=== PATIENT | male | born 1960 | race African-American/Black ===

== ENCOUNTER 2018-11-01 12:02 | Emergency (ER) | payer OTHER ==
[~2018-11-01] VITALS: Ht 165.1 cm; Wt 113.6 kg
[~2018-11-01 12:02] MED LIST: ALDACTONE 25MG25 M1; ALDACTONE 25MG25 M1 PO; ASPIRIN 81M81 MG/TA2 PO; ASPIRIN E.C. 8181 MG PO; CEPHALEXIN500 M1 PO; DOXYCYCLINE 10100 MG PO; FLEXERIL5 MG PO; GLUCOTROL 5M5 MG/TAB PO; LASIX 20MG TABL20 MG PO; LASIX 40MG TABL40 MG PO; MEDROL 4MG DOSPA4 MG PO; NITROSTAT0.4 MG/TAB SL; NORCO 325 MG-51 TAB PO; PRILOSEC 20MG20 MG PO; PRINIVIL40 MG PO; TOPROL XL 50MG50 MG PO; ULTRAM 50MG TAB50 MG PO; ZESTRIL40 MG PO; ZYLOPRIM 100MG100 MG; ZYLOPRIM 100MG100 MG PO
[2018-11-01 12:06] VITALS: TEMP 98.3
[2018-11-01] MEDS ORDERED: ILOTYCIN5 MG/GM OP (12:21)
[2018-11-01 12:32] VITALS: BP 197/88; PULSE 65
== END 2018-11-01 12:33 | disposition home or self-care (01) ==
LOC: COL.ER 12:02
DX: B99.9 Unspecified infectious disease (principal); H10.89 Other conjunctivitis; F17.210 Nicotine dependence, cigarettes, uncomplicated; I10 Essential (primary) hypertension

== ENCOUNTER → 2018-11-13 | Emergency (ER) | payer OTHER ==
[~2018-11-13] VITALS: Ht 165.1 cm; Wt 113.6 kg
[~2018-11-13] MED LIST changes: +AMOXICILLIN 8751 TAB PO; +CLEOCIN HC150 MG/CAP PO; +COZAAR 50MG50 MG/TAB PO; +ILOTYCIN5 MG/GM OP; +PREDNISONE20 MG PO
[2018-11-13 14:59] VITALS: TEMP 98.6
[2018-11-13 16:29] LABS: BASO # 0.1 (0.0-0.2); BASO % 0.4 % (0.0-2.0); EOS # 0.1 (0.0-0.7); EOS % 0.6 % (0-4.0); GRAN # 9.5 (1.4-6.5); GRAN % 66.5 % (42.2-75.2); HEMATOCRIT 42.7 % (42.0-52.0); HEMOGLOBIN 14.6 g/dl (13.5-18.0); LYMPH # 3.6 (1.2-3.4); LYMPH % 25.2 % (20.0-51.0); MEAN CELL VOLUME 92 fl (80.0-100.0); MEAN CORPUSCULAR HEMOGLOBIN 32 pg (27.0-31.0); MEAN CORPUSCULAR HGB CONC 34 g/dl (33.0-37.0); MEAN PLATELET VOLUME 10.4 fl (7.4-10.4); PLATELET COUNT 196 K/mm3 (130-400); RED BLOOD COUNT 4.62 M/mm3 (4.20-5.60); REDCELL DISTRIBUTION WIDTH-CV 14.3 % (11.5-14.5)
[2018-11-13 16:42] LABS: ALBUMIN 4.1 gm/dL (3.5-5.0); BILIRUBIN,TOTAL 0.5 mg/dL (0.0-1.0); C-REACTIVE PROTEIN 1.5 mg/dL (0.0-0.9); CALCIUM 9.2 mg/dL (8.4-10.2); CREATININE, serum 0.63 mg/dL (0.66-1.25); POTASSIUM 3.9 mmol/L (3.4-5.0); TOTAL PROTEIN 7.5 gm/dL (6.4-8.2)
[2018-11-13 18:09] VITALS: BP 168/86
[2018-11-13 18:35] VITALS: PULSE 72
== END ==
LOC: COL.ER 14:39
PROVIDERS: Physician Assistant
DX: R68.84 Jaw pain (principal); L08.9 Local infection of the skin and subcutaneous tissue, unspecified; R22.0 Localized swelling, mass and lump, head; I10 Essential (primary) hypertension; F17.210 Nicotine dependence, cigarettes, uncomplicated
CPT/HCPCS: J1200; J2920; J7512; Q9967

== ENCOUNTER 2018-12-03 12:32 | Emergency (ER) | payer OTHER ==
[~2018-12-03] VITALS: Ht 165.1 cm; Wt 113.6 kg
[2018-12-03 12:44] VITALS: TEMP 98.2
[2018-12-03 13:09] LABS: COLLECTION METHOD CLEAN CATCH
[2018-12-03 13:18] LABS: MUCOUS Present /lpf; PH 5 (5-8); SQUAMOUS EPITHELIAL None Seen /hpf; URINE APPEARANCE Clear; URINE BACTERIA Occasional /hpf; URINE BILIRUBIN Negative (NEGATIVE); URINE BLOOD 2+ (NEGATIVE); URINE COLOR Amber; URINE GLUCOSE Negative (NEGATIVE); URINE KETONE Negative (NEGATIVE); URINE LEUKOCYTE ESTERASE 1+ (NEGATIVE); URINE NITRATE Positive (NEGATIVE); URINE PROTEIN(semi-quant) 2+ (NEGATIVE); URINE UROBILINOGEN >=4.0 mg/dL (NEGATIVE)
[2018-12-03] MEDS ORDERED: AMOXICILLIN 8751 TAB PO (13:40)
[2018-12-03 13:51] VITALS: BP 147/76; PULSE 84
[2018-12-06] MEDS ORDERED: SEPTRA DS 8001 TAB PO (06:51)
== END 2018-12-03 13:52 | disposition home or self-care (01) ==
LOC: COL.ER 12:32
PROVIDERS: Physician Assistant
DX: N30.00 Acute cystitis without hematuria (principal)
CPT/HCPCS: J0696

== ENCOUNTER 2019-10-25 19:27 | Emergency (ER) | payer OTHER ==
[~2019-10-25] VITALS: Ht 165.1 cm; Wt 90.9 kg
[~2019-10-25 19:27] MED LIST changes: +SEPTRA DS 8001 TAB PO
[2019-10-25 19:32] VITALS: TEMP 98.1
[2019-10-25 19:59] LABS: BASO # 0.1 (0.0-0.2); BASO % 0.4 % (0.0-2.0); EOS % 0.1 % (0-4.0); GRAN # 8.5 (1.4-6.5); GRAN % 62.1 % (42.2-75.2); HEMATOCRIT 40.6 % (42.0-52.0); HEMOGLOBIN 14.1 g/dl (13.5-18.0); LYMPH # 4.2 (1.2-3.4); LYMPH % 30.6 % (20.0-51.0); MEAN CELL VOLUME 92 fl (80.0-100.0); MEAN CORPUSCULAR HEMOGLOBIN 32 pg (27.0-31.0); MEAN CORPUSCULAR HGB CONC 35 g/dl (33.0-37.0); MEAN PLATELET VOLUME 10.8 fl (7.4-10.4); MONO # 0.9 (0.1-0.6); MONO % 6.5 % (1.7-9.3); PLATELET COUNT 205 K/mm3 (130-400); RED BLOOD COUNT 4.42 M/mm3 (4.20-5.60); REDCELL DISTRIBUTION WIDTH-CV 13.7 % (11.5-14.5)
[2019-10-25 20:10] LABS: ALANINE AMINOTRANSFERASE 19 U/L (21-72); ALBUMIN 3.9 gm/dL (3.5-5.0); ALKALINE PHOSPHATASE 89 U/L (50-136); ANION GAP 7 mmol/L (7-16); AST,SGOT 20 U/L (15-37); BILIRUBIN,TOTAL 0.6 mg/dL (0.0-1.0); BLOOD UREA NITROGEN 8 mg/dL (9-20); CALCIUM 9.4 mg/dL (8.4-10.2); CARBON DIOXIDE 28 mmol/L (22-30); CHLORIDE 105 mmol/L (98-107); CREATINE KINASE 146 U/L (55-170); CREATININE, serum 0.63 (0.66-1.25); GLUCOSE 252 mg/dL (74-106); INR 1.1 (0.8-3.0); LIPASE 52 U/L (23-300); POTASSIUM 3.5 mmol/L (3.4-5.0); PROTHROMBIN TIME 12.6 SECONDS (9.7-12.8); SODIUM 140 mmol/L (137-145); TOTAL PROTEIN 7.1 gm/dL (6.4-8.2)
[2019-10-25 20:25] LABS: TROPONIN-I < 0.012 ng/mL (0.000-0.035)
[2019-10-25 20:35] LABS: D-DIMER < 200.00 ng/mLDDu (200-230)
[2019-10-25 21:11] VITALS: BP 142/79; PULSE 70
== END 2019-10-25 21:16 | disposition home or self-care (01) ==
LOC: COL.ER 19:27
PROVIDERS: Emergency Medicine
DX: R07.89 Other chest pain (principal); I10 Essential (primary) hypertension; M10.9 Gout, unspecified; E11.9 Type 2 diabetes mellitus without complications; F17.210 Nicotine dependence, cigarettes, uncomplicated
CPT/HCPCS: J2270

== ENCOUNTER 2022-11-17 03:05 | Inpatient (IN) | payer OTHER ==
[~2022-11-17] VITALS: Ht 165.1 cm; Wt 112.3 kg
[2022-11-17] VITALS (854 sets, daily range): BP systolic 115–154; BP diastolic 90–96; PULSE 74–114; TEMP 96.7–99; O2SAT 85–100
[~2022-11-17 03:05] MED LIST changes: +IPRATROPIUM BROM3 M1 IH; +PREDNISONE50 MG PO
[2022-11-17 03:23] LABS: ARTERIAL BLD GAS O2 SATURATION 98.7 % (92-100); ARTERIAL BLD GAS TCO2 CT 18.4; ARTERIAL BLOOD GAS BASE EXCESS -16.2 (-2-2); ARTERIAL BLOOD GAS HCO3 16.3 meq/L (22-26)
[2022-11-17 03:24] LABS: ARTERIAL BLOOD GAS PCO2 68.9 mmHg (35-45); ARTERIAL BLOOD GAS PO2 211.2 mmHg (80-100); ARTERIAL BLOOD GAS pH 6.99 (7.35-7.45)
[2022-11-17 03:25] LABS: HEMATOCRIT 50.5 % (42.0-52.0); HEMOGLOBIN 15.6 g/dl (13.5-18.0); MEAN CELL VOLUME 102 fl (80.0-100.0); MEAN CORPUSCULAR HEMOGLOBIN 32 pg (27-31); MEAN CORPUSCULAR HGB CONC 31 g/dl (33.0-37.0); MEAN PLATELET VOLUME 11.3 fl (7.4-10.4); PLATELET COUNT 273 K/mm3 (130-400); RED BLOOD COUNT 4.94 M/mm3 (4.20-5.60); REDCELL DISTRIBUTION WIDTH-CV 15.1 % (11.5-14.5)
[2022-11-17 03:34] LABS: INR 1.1 (0.8-3.0); PROTHROMBIN TIME 12.5 SECONDS (9.7-12.8)
[2022-11-17 03:36] LABS: PARTIAL THROMBOPLASTIN TIME 29.7 SECONDS (26.0-37.0)
[2022-11-17 03:52] LABS: ANISOCYTOSIS 1+; BAND 3 % (0-10); COLLECTION METHOD CLEAN CATCH; EOSINOPHIL 1 % (0-4); LYMPHOCYTE 44 % (20.0-51.0); NEUTROPHILS 48 % (42.0-75.2); PLATELET ESTIMATE NORMAL (NORMAL)
[2022-11-17 03:53] LABS: HYPOCHROMIA 3+
[2022-11-17 03:59] LABS: ALBUMIN 3.7 gm/dL (3.4-4.8); BILIRUBIN,TOTAL 0.4 mg/dL (0.2-1.2); CALCIUM 9.5 mg/dL (8.4-10.2); CREATININE, serum 1.15 mg/dL (0.72-1.25); MUCOUS Present (NOT PRESENT); POTASSIUM 3.7 mmol/L (3.5-4.5); SQUAMOUS EPITHELIAL 0-2 /hpf (0-10); TOTAL PROTEIN 7.8 gm/dL (6.2-8.1)
[2022-11-17 04:00] LABS: URINE BACTERIA Occasional /hpf (NONE SEEN)
[2022-11-17 04:01] LABS: PH 6.5 (5.0-8.5); URINE APPEARANCE Clear (CLEAR/HAZY); URINE BLOOD 1+ (NEGATIVE); URINE COLOR Yellow (YELLOW); URINE GLUCOSE 1+ (NEGATIVE); URINE KETONE Negative (NEGATIVE); URINE NITRATE Negative (NEGATIVE); URINE PROTEIN(semi-quant) 3+ (NEGATIVE); URINE UROBILINOGEN 0.2 E.U/dL (0.2-1.0)
[2022-11-17 04:32] LABS: TROPONIN-I 0.051 ng/mL (0.00-0.033)
[2022-11-17 04:40] LABS: ARTERIAL BLD GAS O2 SATURATION 97.1 % (92-100); ARTERIAL BLD GAS TCO2 CT 24.1; ARTERIAL BLOOD GAS BASE EXCESS -5.9 (-2-2); ARTERIAL BLOOD GAS HCO3 22.4 meq/L (22-26); ARTERIAL BLOOD GAS PCO2 55.2 mmHg (35-45); ARTERIAL BLOOD GAS PO2 103.8 mmHg (80-100); ARTERIAL BLOOD GAS pH 7.23 (7.35-7.45)
--- NOTE | 2022-11-17 06:18 | NUR ---
PT RECEIVED FROM ER VIA STRETCHER, ON BIPAP. PT MOVED TO ICU BED AND CONNECTED TO MONITORING. BIPAP ON AT 50% FIO2, RATE OF 25. PT TOLERATING WELL HOWEVER ASKING FOR WATER. PT GIVEN ICE CHIPS DURING SHORT BREAK OFF BIPAP, TOLERATED 5 MINUTES. ADMISSION QUESTIONS ANSWERED, HOWEVER AFTER SHORT TIME PT STATES DIFFICULT TO BREATHE AND REPLACED MASK. HOME MEDS NOT YET REVIEWED WITH PT. VANCOMYCIN INFUSING TO L F/A PIV. NITRO DRIP NOT INFUSING AT THIS TIME, PT'S SBP 145 ON ADMISSION. R A/C PIV SALINE LOCKED. DORSEY IN PLACE WITH CLEAR YELLOW URINE. PT DENIES PAIN. FAMILY UPDATED PER MAGDI KERR IN ER. WILL CONTINUE TO MONITOR.
[2022-11-17 07:27] LABS: CALCIUM 8.3 mg/dL (8.4-10.2); CREATININE, serum 1.11 mg/dL (0.72-1.25); POTASSIUM 4.8 mmol/L (3.5-4.5)
[2022-11-17 07:52] LABS: C-REACTIVE PROTEIN 0.84 mg/dL (0.00-0.50); CHOLESTEROL RISK RATIO 3.9; MAGNESIUM 1.7 mg/dL (1.6-2.6); PHOSPHOROUS 3.5 mg/dL (2.3-4.7)
--- NOTE | 2022-11-17 07:55 | NUR ---
Vancomycin Initial Dosing Pharmacy Note Ordering provider: Segundo Cruz MD Indication/duration: PNA, 7 days LABS: SCr 1.11, CrCl~73, GFR 75 Recommendation: Will continue Vancomcyin 1.25 gm IV q12h. Pharmacy will closely monitor and check a Vancomycin trough on 11/19/22. Loading dose: 2 grams Maintenance dose: 1.25 grams every 12 hours Trough goal: 15-20 ug/mL
--- NOTE | 2022-11-17 09:52 | NUR ---
BEDSIDE SHIFT REPORT RECEIVED FROM MAGDI BROWNING. PT CURRENTLY RESTINING IN BED, NO C/O PAIN OR DISCOMFORT AT THIS TIME. LINES RUNNING ACCORDING TO REPORT. DORSEY DRAINING APPROPRIATELY. VSS ORIENTED TO SELF ONLY.
[2022-11-17 10:06] LABS: ARTERIAL BLD GAS O2 SATURATION 97.5 % (92-100); ARTERIAL BLD GAS TCO2 CT 27.1; ARTERIAL BLOOD GAS BASE EXCESS -0.5 (-2-2); ARTERIAL BLOOD GAS HCO3 25.6 meq/L (22-26); ARTERIAL BLOOD GAS PCO2 47.7 mmHg (35-45); ARTERIAL BLOOD GAS PO2 98.4 mmHg (80-100); ARTERIAL BLOOD GAS pH 7.35 (7.35-7.45)
--- NOTE | 2022-11-17 10:25 | NUR ---
YAQUELIN met with patient to complete intake. Patient reports that he lives at home with his Bella ([phone]) in [place]. Patient reports to being independent with his ALD's and does not utilize any DME to assist with mobility. Patient reports to no home oxygen needs but does have a CPAP machine at night. [facility] and [facility]. He utilizes [facility] for short term medications. Patient denies having a DPOA-HC established and does not wish to create one at this time.
[2022-11-17] MEDS ORDERED: COREG 25MG25 MG/TAB PO (13:58)
[2022-11-17] MEDS ORDERED: COZAAR 50MG50 MG/TAB PO (13:59)
[2022-11-17] MEDS ORDERED: ZYLOPRIM 300MG300 MG PO (13:59)
--- NOTE | 2022-11-17 19:57 | NUR ---
RECEIVED REPORT FROM DAY SHIFT NURSE. PT IS RESTING IN T BED AND PT'S VITALS ARE STABLE AT THIS TIME.
[2022-11-17 21:11] LABS: ARTERIAL BLD GAS O2 SATURATION 94.5 % (92-100); ARTERIAL BLD GAS TCO2 CT 26.1; ARTERIAL BLOOD GAS BASE EXCESS 0.3 (-2-2); ARTERIAL BLOOD GAS HCO3 24.8 meq/L (22-26); ARTERIAL BLOOD GAS PCO2 39.9 mmHg (35-45); ARTERIAL BLOOD GAS PO2 69.4 mmHg (80-100); ARTERIAL BLOOD GAS pH 7.41 (7.35-7.45)
[2022-11-18] VITALS (1291 sets, daily range): BP systolic 117–151; BP diastolic 76–93; PULSE 77–90; TEMP 96.5–97.9; O2SAT 88–100
[2022-11-18 05:48] LABS: ARTERIAL BLD GAS O2 SATURATION 97.6 % (92-100); ARTERIAL BLOOD GAS BASE EXCESS 1.2 (-2-2); ARTERIAL BLOOD GAS HCO3 25.8 meq/L (22-26); ARTERIAL BLOOD GAS PCO2 40.8 mmHg (35-45); ARTERIAL BLOOD GAS PO2 98.9 mmHg (80-100); ARTERIAL BLOOD GAS pH 7.42 (7.35-7.45)
--- NOTE | 2022-11-18 06:26 | NUR ---
PT HAS HAD AN UNEVENTFUL NIGHT. PT HAS BEEN UP MOST OF THE NIGHT AND ON 2L NC. PT CHANGED TO BIPAP AROUND 0500. PT'S VITALS HAVE BEEN STABLE THROUGHOUT THE NIGHT. PT DID NOT WANT TO BE REPOSITIONED. PT COULD MOVE HIMSELF A LITTLE BIT BUT NOT A LOT TO WHERE HE ROLLS TO ONE SIDE OR THE OTHER. WILL GIVE REPORT TO DAY SHIFT NURSE.
[2022-11-18 06:33] LABS: HEMATOCRIT 42.5 % (42.0-52.0); MEAN CORPUSCULAR HEMOGLOBIN 31 pg (27-31); MEAN CORPUSCULAR HGB CONC 33 g/dl (33.0-37.0); MEAN PLATELET VOLUME 11.7 fl (7.4-10.4); PLATELET COUNT 240 K/mm3 (130-400); RED BLOOD COUNT 4.49 M/mm3 (4.20-5.60); REDCELL DISTRIBUTION WIDTH-CV 14.4 % (11.5-14.5)
[2022-11-18 06:37] LABS: MEAN CELL VOLUME 95 fl (80.0-100.0)
[2022-11-18 06:38] LABS: CALCIUM 8.9 mg/dL (8.4-10.2); CREATININE, serum 1.02 mg/dL (0.72-1.25); POTASSIUM 3.6 mmol/L (3.5-4.5)
[2022-11-18 06:53] LABS: TROPONIN-I 0.235 ng/mL (0.00-0.033)
[2022-11-18 07:50] LABS: BAND 6 % (0-10); LYMPHOCYTE 20 % (20.0-51.0); NEUTROPHILS 71 % (42.0-75.2); PLATELET ESTIMATE NORMAL (NORMAL)
--- NOTE | 2022-11-18 18:59 | NUR ---
REPORT GIVEN TO MAGDI VERA
--- NOTE | 2022-11-18 19:48 | NUR ---
RECEIVED REPORT FROM DAY SHIFT NURSE. PT IS SITTING UP ON THE SIDE OF THE BED. PT'S VITALS ARE STABLE AT THIS TIME.
[2022-11-19] VITALS (1362 sets, daily range): BP systolic 139–156; BP diastolic 82–98; PULSE 77–95; TEMP 97.9–98.7; O2SAT 76–100
[2022-11-19 06:03] LABS: ARTERIAL BLD GAS TCO2 CT 28.5; ARTERIAL BLOOD GAS BASE EXCESS 2.9 (-2-2); ARTERIAL BLOOD GAS HCO3 27.3 meq/L (22-26); ARTERIAL BLOOD GAS PCO2 40.9 mmHg (35-45); ARTERIAL BLOOD GAS PO2 66.5 mmHg (80-100); ARTERIAL BLOOD GAS pH 7.44 (7.35-7.45)
[2022-11-19 06:06] LABS: MEAN CELL VOLUME 91 fl (80.0-100.0); MEAN CORPUSCULAR HEMOGLOBIN 31 pg (27-31); MEAN CORPUSCULAR HGB CONC 34 g/dl (33.0-37.0); MEAN PLATELET VOLUME 11.2 fl (7.4-10.4); PLATELET COUNT 230 K/mm3 (130-400); RED BLOOD COUNT 4.84 M/mm3 (4.20-5.60); REDCELL DISTRIBUTION WIDTH-CV 14.5 % (11.5-14.5)
[2022-11-19 06:28] LABS: CALCIUM 8.9 mg/dL (8.4-10.2); CREATININE, serum 1.07 mg/dL (0.72-1.25); POTASSIUM 3.1 mmol/L (3.5-4.5)
[2022-11-19 06:40] LABS: BAND 2 % (0-10); LYMPHOCYTE 39 % (20.0-51.0); NEUTROPHILS 52 % (42.0-75.2)
[2022-11-19 06:41] LABS: ANISOCYTOSIS 1+; PLATELET ESTIMATE NORMAL (NORMAL)
--- NOTE | 2022-11-19 06:42 | NUR ---
PT HAS HAD AN UNEVENTFUL NIGHT. PT'S VITALS HAVE BEEN STABLE THROUGHOUT THE NIGHT. PT HAS BEEN ROOM AIR AND IS ON HOME CPAP AT THIS TIME. WILL GIVE REPORT TO DAY SHIFT NURSE.
--- NOTE | 2022-11-19 12:45 | NUR ---
PT IS ALERT AND ORIENTED IN ROOM. PT HAS A STEADY GAIT AND IS INDEPENDENT IN THE ROOM. PT DENIES ANY NEEDS AT THIS TIME. CALL LIGHT IN REACH.
[2022-11-19] MEDS ORDERED: ALDACTONE 25MG25 M1 PO (13:25)
[2022-11-19] MEDS ORDERED: ENTRESTO 24 MG1 EACH PO (13:25)
[2022-11-19] MEDS ORDERED: ASPIRIN 81M81 MG/TA2 PO (13:25)
[2022-11-19] MEDS ORDERED: AMOXICILLIN 8751 TAB PO (13:26)
[2022-11-19] MEDS ORDERED: LASIX 40MG TABL40 MG PO (13:27)
[2022-11-19] MEDS ORDERED: JARDIANCE10 PO (13:29)
--- NOTE | 2022-11-19 18:18 | NUR ---
PT HAS SAT IN RECLINER MOST OF THE DAY. PT WALKS WITH RT AND RN SBA. PT IS STEADY ON FEET AND SPO2 REMAINS WNL. PT DENIES COMPLAINTS AT THIS TIME AND IS VISTING WITH FAMILY.
--- NOTE | 2022-11-19 22:14 | NUR ---
RECEIVED REPORT FROM DAY SHIFT NURSE. PT IS SITTING UP IN A RECLINER. PT'S VITALS ARE STABLE AT THIS TIME.
--- NOTE | 2022-11-19 22:51 | NUR ---
AT 2100 NURSE NOTICE THAT PT'S IV SITE IN THE RIGHT AC WAS LEAKING AND HAD SOME REDNESS ABOVE THE SITE AND SOME PAIN AROUND IT ALONG WITH SOME SWELLING. TRIED TO CLEAN THE SITE AND FLUSH TO SEE IF IT WAS FLUSHING CORRECTLY. WHEN FLUSHING THE SITE WAS LEAKING CLEAR LIQUID. SO NURSE D/C THE IV AND THE CATHETER TIP WAS INTACT. NURSE STARTED A NEW IV SITE WITH A 20 DIXIE IN THE LEFT AC WITH THE FIRST ATTEMPT. NEW SITE HAS BLOOD RETURN AND FLUSHES.
[2022-11-20] VITALS (678 sets, daily range): BP systolic 129–149; BP diastolic 82–89; PULSE 77–78; TEMP 97.5–97.9; O2SAT 89–100
--- NOTE | 2022-11-20 06:39 | NUR ---
PT HAS HAD AN UNEVENTFUL NIGHT. PT'S VITALS HAVE BEEN STABLE THROUGHOUT THE SHIFT. WILL GIVE REPORT TO DAY SHIFT NURSE.
[2022-11-20 07:17] LABS: BASO # 0.1 K/mm3 (0.0-0.2); BASO % 0.4 % (0.0-2.0); EOS % 0.1 % (0.0-4.0); GRAN # 8.3 K/mm3 (1.4-6.5); GRAN % 56.2 % (42.2-75.2); HEMATOCRIT 43.4 % (42.0-52.0); HEMOGLOBIN 14.5 g/dl (13.5-18.0); LYMPH # 4.9 K/mm3 (1.2-3.4); LYMPH % 33.5 % (20.0-51.0); MEAN CELL VOLUME 93 fl (80.0-100.0); MEAN CORPUSCULAR HEMOGLOBIN 31 pg (27-31); MEAN CORPUSCULAR HGB CONC 33 g/dl (33.0-37.0); MEAN PLATELET VOLUME 11.3 fl (7.4-10.4); MONO # 1.4 K/mm3 (0.1-0.6); MONO % 9.3 % (1.7-9.3); PLATELET COUNT 250 K/mm3 (130-400); RED BLOOD COUNT 4.65 M/mm3 (4.20-5.60); REDCELL DISTRIBUTION WIDTH-CV 14.4 % (11.5-14.5)
[2022-11-20 07:20] LABS: CALCIUM 8.7 mg/dL (8.4-10.2); CREATININE, serum 1.07 mg/dL (0.72-1.25); POTASSIUM 3.3 mmol/L (3.5-4.5)
--- NOTE | 2022-11-20 12:14 | NUR ---
1145- pt INT discontinued. Discharge paperwork and education discussed. PT verbalized and signed for understanding. PT is waiting on ride in room
== END 2022-11-20 13:42 | disposition home or self-care (01) | DRG 280 ==
LOC: COL.ER 03:05 → ICU 04:48
PROVIDERS: Emergency Medicine; Internal Medicine Pulmonary Disease; Nurse Practitioner Family; ADMIT Internal Medicine
PROC: 5A09557 Assistance with Respiratory Ventilation, Greater than 96 Consecutive Hours, Continuous Positive Airway Pressure (ICD-10-PCS; principal; 2022-11-17)
DX: I11.0 Hypertensive heart disease with heart failure (principal); I50.23 Acute on chronic systolic (congestive) heart failure; I21.A1 Myocardial infarction type 2; J96.01 Acute respiratory failure with hypoxia; J96.02 Acute respiratory failure with hypercapnia; J18.9 Pneumonia, unspecified organism; I16.1 Hypertensive emergency; E87.20 Acidosis, unspecified; E87.1 Hypo-osmolality and hyponatremia; I48.92 Unspecified atrial flutter; I42.8 Other cardiomyopathies; M10.9 Gout, unspecified; G47.33 Obstructive sleep apnea (adult) (pediatric); J43.9 Emphysema, unspecified; D72.829 Elevated white blood cell count, unspecified; E87.8 Other disorders of electrolyte and fluid balance, not elsewhere classified; F17.210 Nicotine dependence, cigarettes, uncomplicated; E11.65 Type 2 diabetes mellitus with hyperglycemia; Z20.822 Contact with and (suspected) exposure to COVID-19; Z88.8 Allergy status to other drugs, medicaments and biological substances; Z86.16 Personal history of COVID-19; Z23 Encounter for immunization
CPT/HCPCS: J1650; J1815; J1940; J2270; J2405; J2543; J2930; J3370; J7040

== ENCOUNTER 2023-07-24 22:00 | Inpatient (IN) | payer OTHER ==
[~2023-07-24] VITALS: Ht 165.1 cm; Wt 113.1 kg
[~2023-07-24 22:00] MED LIST changes: +COREG 25MG25 MG/TAB PO; +ENTRESTO 24 MG1 EACH PO; +JARDIANCE10 PO; +ZYLOPRIM 300MG300 MG PO
[2023-07-24 22:29] LABS: BASO # 0.1 K/mm3 (0.0-0.2); BASO % 0.4 % (0.0-2.0); GRAN % 87.4 % (42.2-75.2); HEMATOCRIT 47.3 % (42.0-52.0); HEMOGLOBIN 16.1 g/dl (13.5-18.0); LYMPH # 1.2 K/mm3 (1.2-3.4); LYMPH % 5.4 % (20.0-51.0); MEAN CELL VOLUME 92 fl (80.0-100.0); MEAN CORPUSCULAR HEMOGLOBIN 31 pg (27-31); MEAN CORPUSCULAR HGB CONC 34 g/dl (33.0-37.0); MEAN PLATELET VOLUME 12.3 fl (7.4-10.4); MONO # 1.4 K/mm3 (0.1-0.6); PLATELET COUNT 200 K/mm3 (130-400); RED BLOOD COUNT 5.13 M/mm3 (4.20-5.60); REDCELL DISTRIBUTION WIDTH-CV 14.9 % (11.5-14.5)
[2023-07-24 22:41] LABS: ARTERIAL BLD GAS O2 SATURATION 88.9 % (92-100); ARTERIAL BLD GAS TCO2 CT 24.4; ARTERIAL BLOOD GAS BASE EXCESS 1.3 (-2-2); ARTERIAL BLOOD GAS HCO3 23.4 meq/L (22-26); ARTERIAL BLOOD GAS PCO2 30.9 mmHg (35-45); ARTERIAL BLOOD GAS PO2 50.3 mmHg (80-100)
[2023-07-24 22:51] LABS: ALBUMIN 4.1 gm/dL (3.4-4.8); BILIRUBIN,TOTAL 1.2 mg/dL (0.2-1.2); CALCIUM 9.7 mg/dL (8.4-10.2); CREATININE, serum 1.17 mg/dL (0.72-1.25); POTASSIUM 4.2 mmol/L (3.5-4.5); TOTAL PROTEIN 8.4 gm/dL (6.2-8.1)
[2023-07-24 22:58] LABS: TROPONIN-I 0.08 ng/mL (0.00-0.033)
[2023-07-24 23:24] LABS: ARTERIAL BLD GAS O2 SATURATION 96.8 % (92-100); ARTERIAL BLD GAS TCO2 CT 23.2; ARTERIAL BLOOD GAS HCO3 22.2 meq/L (22-26); ARTERIAL BLOOD GAS PCO2 33.1 mmHg (35-45); ARTERIAL BLOOD GAS PO2 89.3 mmHg (80-100); ARTERIAL BLOOD GAS pH 7.45 (7.35-7.45)
[2023-07-24 23:40] LABS: COLLECTION METHOD CLEAN CATCH
[2023-07-24 23:48] LABS: MUCOUS Present (NOT PRESENT); SQUAMOUS EPITHELIAL 0-2 /hpf (0-10); URINE BACTERIA None Seen /hpf (NONE SEEN); URINE RBC 0-2 /hpf (0-2); URINE WBC 0-2 /hpf (0-2)
[2023-07-24 23:52] LABS: PH 5.5 (5.0-8.5); URINE APPEARANCE Clear (CLEAR/HAZY); URINE COLOR Yellow (YELLOW); URINE GLUCOSE 2+ (NEGATIVE); URINE KETONE 2+ (NEGATIVE); URINE PROTEIN(semi-quant) 3+ (NEGATIVE)
[2023-07-24 23:54] LABS: URINE BLOOD 2+ (NEGATIVE); URINE NITRATE Negative (NEGATIVE); URINE UROBILINOGEN 0.2 E.U/dL (0.2-1.0)
[2023-07-25] VITALS (603 sets, daily range): BP systolic 111–139; BP diastolic 64–81; PULSE 70–82; TEMP 97.4–99.1; O2SAT 31–100
--- NOTE | 2023-07-25 00:53 | NUR ---
Received report from ED nurseTaisha.
[2023-07-25] MEDS ORDERED: ENTRESTO 49 MG1 EACH PO (01:00)
[2023-07-25] MEDS ORDERED: JARDIANCE25 PO (01:05)
--- NOTE | 2023-07-25 01:20 | NUR ---
Patient arrives to ICU room 5 via ED stretcher. Patient states he does not like to lay flat or in bed and prefers a recliner. Recliner brought to room upon patient's request. Inital vitals within normal limits; he is 98% on room air with unlabored respirations. Racquel notified of patient's arrival and his request to have something to eat. Diet order received.
[2023-07-25] MEDS ORDERED: ULTRAM 50MG TAB50 MG PO (01:44)
--- NOTE | 2023-07-25 02:40 | NUR ---
Patient's belongings include street clothes, his cell phone, a pair of glasses, and a silver-colored bracelet. He denies having hearing aids, dentures, or other removable jewelry on his person. He states his left his wallet at home.
--- NOTE | 2023-07-25 05:54 | NUR ---
63 yo male admitted for further care and management of acute respiratory failure with additional concerns for sepsis likely of pulmonary source. ht 165.1 cm wt 90.9 kg SCr 1.17 with estimated CrCl ~60 ml/min half life 15.9 hours Plan: Patient received an initial loading dose of vancomycin 1500 mg x1 in the ED; will give a supplemental loading dose of vancomycin 500 mg for a total loading dose of 2000 mg (22 mg/kg); followed by a maintenance regimen of vancomycin 1000 mg q12h to target a goal trough of 15-20 mcg/ml. Will follow patient's renal function, micro data, and vancomycin levels as indicated to assess for any necessary changes to regimen. Thank you for this dosing consult.
--- NOTE | 2023-07-25 12:20 | NUR ---
SW reviewed pt's clinical record for intake this morning. Pt, a 30% [employer] , was admitted for acute hypoxic respiratory failure yesterday. He is x 36 years and has adult children and grandchildren who live close by. Pt reports he cares for his @ home. Apparently she fell and fractured her tibia back in February and remains on a walker. Pt, himself, ambulates without assistive devices, but states he suffers from edema. Pt is independent in his ADL's/IADL's and uses a C-PAP @ home by his own admission. His primary care provider is @ the [facility] and he fills his medications @ the [facility]. Pt plans to return home @ discharge and reports his daughter will transport him home. No other concerns noted. Will continue to follow.
--- NOTE | 2023-07-25 13:00 | NUR ---
1245 PT BACK TO ICU ROOM 7 FROM GAME ATTENDANT PROCEDURE. PT TOLERATED WELL. NO BLEEDING TO SITE. PT CONTINUES TO BE FLAT. NO HEMATOMA NOTED AND PULSES FELT.
[2023-07-25] MEDS ORDERED: COREG 25MG25 MG/TAB PO (13:21)
[2023-07-25] MEDS ORDERED: LASIX 40MG TABL40 MG PO (13:21)
[2023-07-25] MEDS ORDERED: VITAMIN C500 MG PO (13:22)
[2023-07-25] MEDS ORDERED: OMEGA-3 1000 MG1 CAP PO (13:22)
[2023-07-25] MEDS ORDERED: VITAMIN D 400400 IU (13:22)
[2023-07-25] MEDS ORDERED: VITAMIN B12 781 TAB PO (13:23)
[2023-07-25] MEDS ORDERED: PHARMASSURE ZIN50 MG PO (13:23)
--- NOTE | 2023-07-25 13:58 | NUR ---
1330 REPORT TO MECICAL FLOOR, PT TRANSFERING TO MEDICAL BED 309. PT AWARE AND CALLED FAMILY TO NOTIFY. PT STATED HE DID NOT NEED THIS NURSE TO NOTIFY ANYONE AT THIS TIME. 1350 PT LEFT UNIT IN WHEELCHAIR WITH ALL BELONGINGS PT CAME IN WITH.
--- NOTE | 2023-07-25 14:21 | NUR ---
PATINET AWAKE AND ALERT, RESTING IN BED. PATIENT DENIES ANY NEEDS OR COMPLAINTS AT THIS TIME. VITAL SIGNS STABLE.
--- NOTE | 2023-07-25 16:50 | NUR ---
PATIENT AWAKE AND ALERT, SITITNG UP IN RECLINER. PATIENT RECONNECTED TO TELE. PATIENTS CALL LIGHT WITHIN REACH, PATIENT DENIES ANY NEEDS OR COMPLAINTS AT THIS TIME. PATIENTS GRANDDAUGHTER AT BEDSIDE
--- NOTE | 2023-07-25 21:00 | NUR ---
Patient resting in chair. States he has a headache and rates his pain an 8/ 10, pain meds given. Assessment complete. IV site in left AC appears clean, dry, intact, and flushes with no complications. Denies any other needs at this time.
[2023-07-26 03:29] VITALS: BP 125/65; PULSE 77; TEMP 97.5
--- NOTE | 2023-07-26 06:00 | NUR ---
Patient sitting in chair. Denies any pain or needs at this time. Patient monitored throughout the night by this nurse. Call light and personal items in reach.
[2023-07-26 07:16] LABS: HEMATOCRIT 43.3 % (42.0-52.0); HEMOGLOBIN 14.6 g/dl (13.5-18.0); MEAN CELL VOLUME 93 fl (80.0-100.0); MEAN CORPUSCULAR HEMOGLOBIN 31 pg (27-31); MEAN CORPUSCULAR HGB CONC 34 g/dl (33.0-37.0); MEAN PLATELET VOLUME 12.2 fl (7.4-10.4); PLATELET COUNT 188 K/mm3 (130-400); RED BLOOD COUNT 4.67 M/mm3 (4.20-5.60); REDCELL DISTRIBUTION WIDTH-CV 15.2 % (11.5-14.5)
[2023-07-26 07:32] LABS: CREATININE, serum 1.2 mg/dL (0.72-1.25); POTASSIUM 3.9 mmol/L (3.5-4.5)
[2023-07-26 07:35] VITALS: BP 133/77; PULSE 73; TEMP 98.3
[2023-07-26 09:00] VITALS: BP_SYST 127
[2023-07-26 09:00] LABS: BAND 12 % (0-10); LYMPHOCYTE 6 % (20.0-51.0); NEUTROPHILS 77 % (42.0-75.2)
[2023-07-26 09:04] LABS: PLATELET ESTIMATE NORMAL (NORMAL)
[2023-07-26] MEDS ORDERED: DOXYCYCLINE 10100 MG PO (10:55)
[2023-07-26] MEDS ORDERED: CEFTIN 250250 MG/TAB PO (10:55)
[2023-07-26] MEDS ORDERED: COREG 3.123.125 MG/T PO (10:56)
[2023-07-26] MEDS ORDERED: ENTRESTO 24 MG1 EACH PO (10:56)
[2023-07-26] MEDS ORDERED: MAG-OX 400400 MG/TAB PO (10:57)
[2023-07-26] MEDS ORDERED: ALDACTONE 25MG25 M1 PO (10:57)
[2023-07-26] MEDS ORDERED: MUCUS RELIEF400 M1 PO (10:58)
[2023-07-26 11:09] VITALS: BP 127/81; PULSE 72; TEMP 98.3
--- NOTE | 2023-07-26 11:21 | NUR ---
PATIENT AWAKE AND ALERT, RESTING IN BED. PATIENT DENIES ANY NEEDS OR COMPLAINTS AT THIS TIME. PATIENTS CALL LIGHT WITHIN REACH.
--- NOTE | 2023-07-26 11:22 | NUR ---
PATIENTS TELE AND IV REMOVED
--- NOTE | 2023-07-26 12:03 | NUR ---
PATIENT GIVEN DISCHRAGE INSTRUCTIONS AND EDUCATION. CHALO STATED HE IS CONCERNED THAT HE MAY HAVE TO PAY OUT OF POCKET FOR HIS ANTIBIOTICS, AND REQUESTED WE SPEAK WITH [facility]. THIS RN SPOKE WITH YAQUELIN, SW CAME AND SPOKE TO CHALO. SW TO REACH OUT TO HER CONTACT AT [place] AND INQUIRE FOR PATIENT ABOUT HIS MEDICATIONS. PATIENT AGREED TO THIS. SW HAS PATIENTS NUMBER TO FOLLOW UP WITH HIM AFTER DISCHARGE. PATIENT DENEIS ANY FURTHER NEEDS OR COMPLAINTS AT THIS TIME. PATIENT TAKEN TO ER ENTRANCE VIA WHEEL CHAIR BY PCT WHERE HE LEFT IN STABLE CONDITION IN THE CARE OF HIS DAUGHTER.
--- NOTE | 2023-07-26 16:36 | NUR ---
Perch Mender spoke with patient who advised SW needed to contact the [facility] about paying for his antibiotic prescriptions as he normally has them mailed to him, but would need to pick them up today from a local pharmacy. YAQUELIN contacted YAQUELIN Mistry at the [facility] and notified her of this.
== END 2023-07-26 12:02 | disposition home or self-care (01) | DRG 871 ==
LOC: COL.ER 22:00 → ICU 23:44 → MEDICAL 07-25 14:20
PROVIDERS: Emergency Medicine; ADMIT Internal Medicine
PROC: 5A09357 Assistance with Respiratory Ventilation, Less than 24 Consecutive Hours, Continuous Positive Airway Pressure (ICD-10-PCS; principal; 2023-07-24)
DX: A41.9 Sepsis, unspecified organism (principal); I50.23 Acute on chronic systolic (congestive) heart failure; J18.9 Pneumonia, unspecified organism; J96.01 Acute respiratory failure with hypoxia; I42.8 Other cardiomyopathies; J44.1 Chronic obstructive pulmonary disease with (acute) exacerbation; E87.20 Acidosis, unspecified; Z20.822 Contact with and (suspected) exposure to COVID-19; G47.33 Obstructive sleep apnea (adult) (pediatric); E11.9 Type 2 diabetes mellitus without complications; M10.9 Gout, unspecified; R79.89 Other specified abnormal findings of blood chemistry; F17.210 Nicotine dependence, cigarettes, uncomplicated; I11.0 Hypertensive heart disease with heart failure; Z79.82 Long term (current) use of aspirin; Z79.899 Other long term (current) drug therapy; Z23 Encounter for immunization; Z95.810 Presence of automatic (implantable) cardiac defibrillator; Z91.011 Allergy to milk products
CPT/HCPCS: A9270; J0696; J1815; J2543; J2930; J3370; J3475; J7030; J7050; J7512